=== PATIENT | male | born 1945 | race Two or more races ===

== ENCOUNTER 2025-05-29 17:53 | Inpatient (IN) | payer BC, OTHER ==
[~2025-05-29] VITALS: Ht 175.3 cm; Wt 118.2 kg
[2025-05-29] MEDS: ONDANSETRON HCL 4 MG/2 ML VIAL IV ONE (18:15)
--- NOTE | 2025-05-29 18:18 | ED.PDOC ---
HPI (NEURO) HPI Comments 79-year-old man complains of dizziness, nausea and come and vomiting and a little diarrhea for the last 3 days. Associated with some fatigue and malaise. Unprovoked. Worse with head movement. Chief Complaint: Dizziness Time Seen by MD: 18:07 Reviewed Notes: Nurses Notes Information Source: Patient Mode of Arrival: Wheelchair Severity: Moderate, Severe Headache Severity: Mild Timing: Days Duration: Since onset Past Medical History PAST MEDICAL HISTORY: Denies Social History Smoker: Non-Smoker Alcohol: Rarely Constitutional: reports: fatigue, malaise Gastrointestinal: reports: diarrhea, nausea, vomiting Neurological: reports: dizziness Physical Exam General Appearance: Moderate Distress HEENT: Normal ENT Inspection, Pharynx Normal, TMs Normal Neck: Full Range of Motion, Non-Tender, Normal, Normal Inspection Respiratory: Chest Non-Tender, Lungs Clear, No Accessory Muscle Use, No Respiratory Distress, Normal Breath Sounds Cardiovascular: No Edema, No JVD, No Murmur, No Gallop, Normal Peripheral Pulses, Regular Rate/Rhythm Breast Exam: Deferred Gastrointestinal: Non Tender, Other (obese) Genitalia: Deferred Pelvic: Deferred Rectal: Deferred Extremities: No calf tenderness, Normal capillary refill, Normal inspection, Normal range of motion, Non-tender, No pedal edema Musculoskeletal : Apperance: Normal Neurologic: Alert, blood bank technologist II-XII nml as Tested, No Motor Deficits, Normal Affect, Normal Mood, No Sensory Deficits Cerebellar Function: Normal Reflexes: Normal Skin: Dry, Normal Color, Warm Lymphatic: No Adenopathy EKG EKG : Cardiac Rhythm: NSR Was a procedure done? Was a procedure done?: No Differential Diagnosis (SZ) Seizure: Alcohol Withdrawl, Anticonvulsant Withdrawl, Closed Head Injury, CVA/TIA, Hypocalcemia, Hypoglycemia, Hyponatremia, Hypoxemia, Meningitis, Syncope, Encephalopathy, Other X-Ray, Labs, Meds, VS Vital Signs Date Time Temp Pulse Resp B/P (MAP) Pulse Ox O2 Delivery O2 Flow Rate FiO2 05/29/25 18:10 78 05/29/25 17:55 98.7 75 20 157/83 94 98.7 Lab Test 05/29/25 19:32 05/29/25 18:37 Range/Units Troponin I High Sensitivity Pending 24 </=54 ng/L White Blood Count 10.4 4.4-10.8 10^3/uL Red Blood Count 5.19 4.5-5.90 10^6/uL Hemoglobin 17.8 H 13.5-17.5 g/dL Hematocrit 50.3 41.0-53.0 % Mean Corpuscular Volume 96.9 80.0-100.0 fL Mean Corpuscular Hemoglobin 34.4 H 28.0-32.0 pg Mean Corpuscular Hemoglobin Concent 35.5 32.0-36.0 g/dL Red Cell Distribution Width 13.5 11.8-14.3 % Platelet Count 215 140-450 10^3/uL Mean Platelet Volume 9.9 6.9-10.8 fL Neutrophils (%) (Auto) 65.1 37.0-80.0 % Lymphocytes (%) (Auto) 25.6 10.0-50.0 % Monocytes (%) (Auto) 6.6 0.0-12.0 % Eosinophils (%) (Auto) 2.0 0.0-7.0 % Basophils (%) (Auto) 0.7 0.0-2.0 % Neutrophils # (Auto) 6.8 1.6-8.6 10 ^3/uL Lymphocytes # (Auto) 2.7 0.4-5.4 10 ^3/uL Monocytes # (Auto) 0.7 0-1.3 10 ^3/uL Eosinophils # (Auto) 0.2 0-0.8 10 ^3/uL Basophils # (Auto) 0.1 0-0.2 10 ^3/uL Nucleated Red Blood Cells 0.1 % Sodium Level 142 136-145 mmol/L Potassium Level 3.9 3.5-5.1 mmol/L Chloride Level 106 98-107 mmol/L Carbon Dioxide Level 25 20-31 mmol/L Anion Gap 11 5-15 Blood Urea Nitrogen 18 9-23 mg/dL Creatinine 1.10 0.700-1.30 mg/dL Glomerular Filtration Rate Calc 68 >90 mL/min BUN/Creatinine Ratio 16.4 10.0-20.0 Serum Glucose 108 H 74-106 mg/dL Calcium Level 9.4 8.7-10.4 mg/dL Magnesium Level 2.1 1.6-2.6 mg/dL Total Bilirubin 0.6 0.2-1.0 mg/dL Aspartate Amino Transferase (AST) 54 H 13-40 U/L Alanine Aminotransferase (ALT) 78 H 7-40 U/L Alkaline Phosphatase 63 46-116 U/L Total Protein 7.7 5.7-8.2 g/dL Albumin 4.8 3.2-4.8 g/dL Time of 1ST Reevaluation: 18:17 Reevaluation 1ST: Unchanged Patient Education/Counseling: Diagnosis, Treatment Family Education/Counseling: No Family Present Departure 1 Departure Time of Disposition: 19:54 Impression: Primary Impression: Vertigo Additional Impressions: Nausea vomiting and diarrhea Severe dizziness Disposition: ADMITTED INPATIENT Admit to: Tele Condition: Guarded Discharged With: Self Comments 79-year-old male with severe vertigo. Patient is unsteady on his feet. CT of the brain shows no acute pathology but there is some ischemic changes and degenerative changes. Radiology recommends MRI. Patient still having severe symptoms on re-evaluation. Patient will need to be admitted for supportive care and further workup including MRI Critical Care Note Critical Care Time?: Yes (35 min-critical care time only) Critical care comment: Total critical care time: Approximately 36 minutes Due to a high probability of clinically significant, life threatening deterioration, the patient required my highest level of preparedness to intervene emergently and I personally spent this critical care time directly and personally managing the patient. This critical care time included obtaining a history; examining the patient; pulse oximetry; ordering and review of studies; arranging urgent treatment with development of a management plan; evaluation of patient's response to treatment; frequent reassessment; and, discussions with other providers. This critical care time was performed to assess and manage the high probability of imminent, life-threatening deterioration that could result in multi-organ failure. It was exclusive of separately billable procedures and treating other patients. Stability Stability form required: No Heart Score Heart Score: Heart Score Response (Comments) Value History Slightly Suspicious 0 EKG Normal 0 Age >65 2 Risk Factors 1 or 2 risk factors 1 Troponin Normal limit 0 Total 3 GENNY LYMAN MD May 29, 2025 18:18
[2025-05-29 18:56] LABS: Nucleated Red Blood Cells % 0.1 %
[2025-05-29 18:57] LABS: Hematocrit 50.3 % (41.0-53.0); Hemoglobin 17.8 g/dL (13.5-17.5); Mean Corpuscular Hemoglobin 34.4 pg (28.0-32.0); Mean Corpuscular Volume 96.9 fL (80.0-100.0)
--- NOTE | 2025-05-29 19:01 | DVH ---
CT HEAD WITHOUT CONTRAST INDICATION: vertigo EXAM DATE: 05/29/2025 06:23 PM COMPARISON: None RADIATION DOSE: CTDIvol: 56.87 mGy, DLP: 1139.19 mGy*cm PROCEDURE: CT scans of the head were obtained from the vertex to the skull base. Sagittal and coronal reconstructions were provided. All CT scans at this medical facility are performed using dose modulation techniques as appropriate t o a performed exam including the following: Automated exposure control was utilized; adjustment of th e MA and/or KV according to patient size; and use of iterative reconstruction technique. FINDINGS: No acute territorial infarct, intracranial hemorrhage, or mass effect. There are global involutional changes with compensatory prominence of the ventricles and sulci. Patchy periventricular and subcorti felipe white matter hypoattenuation is nonspecific but may be related to small vessel ischemic disease. Probable arachnoid cyst within the left temporoparietal lobe. Bilateral lens implants. The paranasal sinuses and mastoid air cells are clear. The osseous structur es are unremarkable. IMPRESSION: 1. No acute territorial infarct, intracranial hemorrhage, or mass effect. 2. Age-related involutional changes. Chronic microvascular changes. 3. If clinical symptoms persist, MRI may be beneficial in further evaluation.
[2025-05-29 19:14] LABS: Alanine Aminotransferase 78 U/L (7-40); Albumin 4.8 g/dL (3.2-4.8); Alkaline Phosphatase 63 U/L (46-116); Anion Gap 11 (5-15); BUN/Creatinine Ratio 16.4 (10.0-20.0); Bilirubin, Total 0.6 mg/dL (0.2-1.0); Blood Urea Nitrogen 18 mg/dL (9-23); Calcium 9.4 mg/dL (8.7-10.4); Carbon Dioxide 25 mmol/L (20-31); Chloride 106 mmol/L (98-107); Glucose 108 mg/dL (74-106); Magnesium 2.1 mg/dL (1.6-2.6); Potassium 3.9 mmol/L (3.5-5.1); Sodium 142 mmol/L (136-145); Total Protein 7.7 g/dL (5.7-8.2)
[2025-05-29] MEDS ORDERED: DOCUSATE SOD 100 MG CAP PO PRN (23:15)
[2025-05-29] MEDS ORDERED: ONDANSETRON HCL 4 MG/2 ML VIAL IV PRN (23:15)
[2025-05-29] MEDS ORDERED: MORPHINE SULFATE INJ 2 MG/ml SYRG IV PRN (23:15)
[2025-05-29] MEDS ORDERED: HYDROcodone-ACET 5/325MG TAB PO PRN (23:15)
[2025-05-29] MEDS ORDERED: ACETAMINOPHEN 325 MG TAB PO PRN (23:15)
[2025-05-29] MEDS ORDERED: NITROGLYCERIN 0.4 MG SL TAB SL PRN (23:15)
--- NOTE | 2025-05-30 01:33 | DVHHP2 ---
DEBORAH MALAVE EXPLOSIVES MIXER OPERATOR 05/30/25 0133: History of Present Illness Reason for Visit: Dizziness History of Present Illness 79-year-old male without any pertinent medical history presents with complaints of ongoing dizziness over the previous week. States he feels like the room is spinning around him. Also feels nauseous. Endorses worsens when he tries to walk. States he is unable to walk with steady gait. At this time denies fevers, chills, shortness of breath, chest pain, palpitations, abdominal pain, dysuria, leg swelling. Smoke: No ALCOHOL: none Drugs: None Lives: with Family Review of Systems Constitutional: Yes: Weakness; No: Fever, Chills, Sweats, Malaise, Other Eyes: No: Pain, Vision change, Conjunctivae inflammation, Eyelid inflammation, Other, Redness ENT: No: Ear pain, Ear discharge, Nose pain, Nose discharge, Nose congestion, Mouth pain, Mouth swelling, Throat pain, Throat swelling, Other Respiratory: No: Cough, Dry, Shortness of breath, SOB with excertion, Wheezing, Hemoptysis, Pleuritic Pain, Sputum, Wheezing, Other Cardiovascular: No: Chest Pain, Palpitations, Orthopnea, Paroxysmal Noc. Dyspnea, Edema, Lt Headedness, Other Gastrointestinal: No: Nausea, Vomiting, Abdominal Pain, Diarrhea, Constipation, Melena, Hematochezia, Other Genitourinary: No Dysuria, No Frequency, No Incontinence, No Hematuria, No Retention, No Other Musculoskeletal: No: other, neck pain, shoulder pain, arm pain, back pain, hand pain, leg pain, foot pain Skin: No: Rash, Lesions, Jaundice, Bruising, Other Neurological: Other (Dizziness); No: Weakness, Numbness, Incoordination, Change in speech, Confusion, Seizures Allergies: Coded Allergies: NO KNOWN ALLERGIES (Unverified , 05/29/25) Medications Current Medications Medications Dose Ordered Sig/Rena Route Start Time Stop Time Status Last Admin Dose Admin Sodium Chloride 1,000 ml @ 75 mls/hr [id number] IV 05/29/25 23:15 05/30/25 12:34 Docusate Sodium 100 mg BIDPRN PRN PO 05/29/25 23:15 Acetaminophen 650 mg Q6HP PRN PO 05/29/25 23:15 Acetaminophen/ Hydrocodone Bitart 1 tab Q4HP PRN PO 05/29/25 23:15 Ondansetron HCl 4 mg Q4HP PRN IV 05/29/25 23:15 Enoxaparin Sodium 40 mg DAILY SC 05/30/25 10:00 Nitroglycerin 0.4 mg Q5MINP PRN SL 05/29/25 23:15 Morphine Sulfate 2 mg Q30M PRN IV 05/29/25 23:15 Meclizine HCl 25 mg Q8HR PO 05/30/25 06:00 06/01/25 22:01 Exam Vital Signs Vital Signs Date Time Temp Pulse Resp B/P (MAP) Pulse Ox O2 Delivery O2 Flow Rate FiO2 05/29/25 18:10 78 05/29/25 17:55 98.7 20 157/83 94 98.7 General Appearance: Alert, Oriented X3, Cooperative, No acute distress HEENT: Atraumatic, PERRLA, EOMI Respiratory: Clear to auscultation, Normal air movement Cardiovascular: Regular rate, Normal S1, Normal S2 Abdominal: Normal bowel sounds, Soft Extremities: No clubbing, No cyanosis, No edema Neuro: Normal speech, Strength at 5/5 X4 ext Psych/Mental Status: Mental status NL, Mood NL Labs/Xrays Labs Test 05/29/25 19:32 05/29/25 18:37 Range/Units Troponin I High Sensitivity 21 </=54 ng/L White Blood Count 10.4 4.4-10.8 10^3/uL Red Blood Count 5.19 4.5-5.90 10^6/uL Hemoglobin 17.8 H 13.5-17.5 g/dL Hematocrit 50.3 41.0-53.0 % Mean Corpuscular Volume 96.9 80.0-100.0 fL Mean Corpuscular Hemoglobin 34.4 H 28.0-32.0 pg Mean Corpuscular Hemoglobin Concent 35.5 32.0-36.0 g/dL Red Cell Distribution Width 13.5 11.8-14.3 % Platelet Count 215 140-450 10^3/uL Mean Platelet Volume 9.9 6.9-10.8 fL Neutrophils (%) (Auto) 65.1 37.0-80.0 % Lymphocytes (%) (Auto) 25.6 10.0-50.0 % Monocytes (%) (Auto) 6.6 0.0-12.0 % Eosinophils (%) (Auto) 2.0 0.0-7.0 % Basophils (%) (Auto) 0.7 0.0-2.0 % Neutrophils # (Auto) 6.8 1.6-8.6 10 ^3/uL Lymphocytes # (Auto) 2.7 0.4-5.4 10 ^3/uL Monocytes # (Auto) 0.7 0-1.3 10 ^3/uL Eosinophils # (Auto) 0.2 0-0.8 10 ^3/uL Basophils # (Auto) 0.1 0-0.2 10 ^3/uL Nucleated Red Blood Cells 0.1 % Sodium Level 142 136-145 mmol/L Potassium Level 3.9 3.5-5.1 mmol/L Chloride Level 106 98-107 mmol/L Carbon Dioxide Level 25 20-31 mmol/L Anion Gap 11 5-15 Blood Urea Nitrogen 18 9-23 mg/dL Creatinine 1.10 0.700-1.30 mg/dL Glomerular Filtration Rate Calc 68 >90 mL/min BUN/Creatinine Ratio 16.4 10.0-20.0 Serum Glucose 108 H 74-106 mg/dL Calcium Level 9.4 8.7-10.4 mg/dL Magnesium Level 2.1 1.6-2.6 mg/dL Total Bilirubin 0.6 0.2-1.0 mg/dL Aspartate Amino Transferase (AST) 54 H 13-40 U/L Alanine Aminotransferase (ALT) 78 H 7-40 U/L Alkaline Phosphatase 63 46-116 U/L Total Protein 7.7 5.7-8.2 g/dL Albumin 4.8 3.2-4.8 g/dL SEPSIS Sepsis Screen Date sepsis recognized/suspect: May 29, 2025 Time Sepsis recognized/suspect: 1754 Recent Procedure: No On Antibiotic Therapy: No Respiratory Rate >20: No Heart Rate >90: No Temp<36 C (96.8 F) or >38.3 C: No SBP <90 or MAP <65 mmHG: No New Acute Mental Status Change: No Is the patient on CPAP, BIPAP,: No Physician Orders Electrocardigram (05/29/25 18:13) Head Without Contrast (05/29/25 18:12) Admit (05/29/25 23:14) Code Status (05/29/25:14) Vital Signs .PER UNIT PROTOCOL (05/29/25 23:14) Review Orders With Adm.Md (05/29/25 23:14) Encourage Activity As Tolerate (05/29/25:14) Consistent Carb(Ccho)Diabetes (05/30/25 Breakfast) Sodium Chloride 0.9% (05/29/25 23:15) Oxygen By Face Mask (05/29/25:14) Docusate Sodium Capsule (Colace Capsule) (05/29/25 23:15) Acetaminophen Tablet (Tylenol Tablet) (05/29/25 23:15) Notify Md Of Changes From Base (05/29/25:14) Advance Directive (05/29/25:14) Echo 2d Mode Cardiac Dop (05/29/25:14) Basic Metabolic Panel (05/30/25 05:00) Basic Metabolic Panel (05/31/25 05:00) Basic Metabolic Panel (06/01/25 05:00) Complete Blood Count (05/30/25 05:00) Complete Blood Count (05/31/25 05:00) Complete Blood Count (06/01/25 05:00) Patient Condition (05/29/25 23:14) Allergies (05/29/25:14) Hydrocodone-Acet 5/325mg Tab ([place] 5/32 (05/29/25 23:15) Ondansetron Hcl (Zofran) (05/29/25 23:15) Enoxaparin Sodium (Lovenox) (05/30/25 10:00) Sequential Compression Device (05/29/25 ) Nitroglycerin Sublingual (Ntrostat Subli (05/29/25 23:15) Morphine Sulfate Injection (05/29/25 23:15) Stat Ekg For Chest Pain (05/29/25:14) Notify Md Of Changes From Base (05/29/25:) Grounds And Nursery Specialist For 24 Hours (05/29/25 23:14) Emergency Dysrhythmia Protocol (05/29/25:14) Rhythm Strips Once Every Shift (05/29/25 23:14) Oxygen By Nasal Cannula (05/29/25:14) Meclizine Tablet (Antivert Tablet) (05/30/25 06:00) Pt Request For Service (05/29/25 23:14) Brain Head Wo Contrast (05/29/25 23:14) Orthostatic Vital Signs (05/29/25 23:14) Orthostatic Vital Signs (05/30/25 23:14) Orthostatic Vital Signs (05/31/25 23:14) Orthostatic Vital Signs (06/01/25 23:14) * Cardiology Consult (05/29/25 23:14) Vital Signs Date Time Temp Pulse Resp B/P (MAP) Pulse Ox O2 Delivery O2 Flow Rate FiO2 05/29/25 18:10 78 05/29/25 17:55 98.7 75 20 157/83 94 98.7 Laboratory Tests Test 05/29/25 18:37 White Blood Count 10.4 10^3/uL (4.4-10.8) Assessment/Plan Assessment/Plan Dizziness Plan Admit telemetry Cardiology consult. echocardiogram. Orthostatic vital signs. MRI brain. IVF, Meclizine Physical therapy evaluation GI ppx protonix /dvt ppx lovenox Plan discussed with: Patient My Orders Orders - DEBORAH MALAVE EXPLOSIVES MIXER OPERATOR Procedure Category Date Status Time Admit ADMIT 05/29/25 Transmitted 23:14 Code Status CODE 05/29/25 Transmitted 23:14 Vital Signs RORY 05/29/25 In Process 23:14 Review Orders With RORY 05/29/25 In Process Adm. 23:14 Encourage Activity As RORY 05/29/25 In Process Tolerate 23:14 Consistent DIET 05/30/25 Transmitted Carb(Ccho)Diabetes Breakfast Sodium Chloride 0.9% PHA 05/29/25 In Process 23:15 Oxygen By Face Mask RT 05/29/25 Transmitted 23:14 Docusate Sodium PHA 05/29/25 In Process Capsule (Colace 23:15 Acetaminophen Tablet PHA 05/29/25 In Process (Tylenol Tablet) 23:15 Notify Md Of Changes RORY 05/29/25 In Process From Base 23:14 Advance Directive RORY 05/29/25 In Process 23:14 Echo 2d Mode Cardiac US 05/29/25 Logged DOP 23:14 Basic Metabolic Panel LAB 05/30/25 Logged 05:00 Basic Metabolic Panel LAB 05/31/25 Verified 05:00 Basic Metabolic Panel LAB 06/01/25 Verified 05:00 Complete Blood Count LAB 05/30/25 Logged 05:00 Complete Blood Count LAB 05/31/25 Verified 05:00 Complete Blood Count LAB 06/01/25 Verified 05:00 Patient Condition ORDERS 05/29/25 Transmitted 23:14 Allergies RORY 05/29/25 In Process 23:14 Hydrocodone-Acet PHA 05/29/25 In Process 5/325mg Tab ([place] 23:15 Ondansetron Hcl PHA 05/29/25 In Process (Zofran) 23:15 Enoxaparin Sodium PHA 05/30/25 In Process (Lovenox) 10:00 Sequential RORY 05/29/25 In Process Compression Device Nitroglycerin PHA 05/29/25 In Process Sublingual (Ntrostat 23:15 Morphine Sulfate PHA 05/29/25 In Process Injection 23:15 Stat Ekg For Chest RORY 05/29/25 In Process Pain 23:14 Notify Md Of Changes RORY 05/29/25 In Process From Base 23:14 Grounds And Nursery Specialist For [facility] 05/29/25 In Process 24 Hours 23:14 Emergency Dysrhythmia RORY 05/29/25 In Process Protocol 23:14 Rhythm Strips Once RORY 05/29/25 In Process Every Shift 23:14 Oxygen By Nasal RT 05/29/25 Transmitted Cannula 23:14 Meclizine Tablet PHA 05/30/25 In Process (Antivert Tablet) 06:00 Pt Request For Service PT 05/29/25 Logged 23:14 Brain Head Wo Contrast MRI 05/29/25 Logged 23:14 Orthostatic Vital ORDERS 05/29/25 Transmitted Signs 23:14 Orthostatic Vital ORDERS 05/30/25 Transmitted Signs 23:14 Orthostatic Vital ORDERS 05/31/25 Transmitted Signs 23:14 Orthostatic Vital ORDERS 06/01/25 Transmitted Signs 23:14 * Cardiology Consult CONS 05/29/25 Transmitted 23:14 Date of Service: May 30, 2025 Billing Provider: SOLEDAD NUR MD Common Visit Codes: NOT BILLABLE SOLEDAD NUR MD 05/30/25 1648: Review of Systems Allergies: Coded Allergies: NO KNOWN ALLERGIES (Unverified , 05/29/25) Additional Comments Additional Comments Additional Comments Patient's chart is reviewed and discussed with the nurse practitioner regarding admission. Patient is seen evaluated and admitted by nurse practitioner duplicating machine servicer. Patient is seen and evaluated by me this afternoon. I agree with the nurse practitioner's evaluation, documentation, assessment and care plan as outlined. DEBORAH MALAVE NP May 30, 2025 01:33 SOLEDAD NUR MD May 30, 2025 16:48
[2025-05-30] MEDS: SODIUM CHLORIDE 0.9% 1,000 ML IV ONE (02:15)
[2025-05-30] MEDS: MECLIZINE HCL 25 MG TAB PO ONE (02:19)
[2025-05-30 02:20] VITALS: PULSE 74; RESP 12; O2SAT 96
[2025-05-30] MEDS: SODIUM CHLORIDE 0.9% 1,000 ML IV SCH (03:06)
[2025-05-30] MEDS: MECLIZINE HCL 25 MG TAB PO SCH (05:53)
[2025-05-30] MEDS: hydrALAZINE HCL 20 MG/ML VL IV PRN (06:15)
[2025-05-30 07:29] LABS: Hematocrit 50.0 % (41.0-53.0); Hemoglobin 17.1 g/dL (13.5-17.5); Mean Corpuscular Hemoglobin 33.7 pg (28.0-32.0); Mean Corpuscular Volume 98.9 fL (80.0-100.0); Nucleated Red Blood Cells % 0.1 %
[2025-05-30 07:31] LABS: Chloride 106 mmol/L (98-107); Potassium 3.8 mmol/L (3.5-5.1); Sodium 141 mmol/L (136-145)
[2025-05-30 07:32] LABS: Anion Gap 14 (5-15); Carbon Dioxide 21 mmol/L (20-31)
[2025-05-30 07:33] LABS: Calcium 9.2 mg/dL (8.7-10.4)
[2025-05-30 07:37] LABS: BUN/Creatinine Ratio 21.1 (10.0-20.0); Blood Urea Nitrogen 19 mg/dL (9-23)
[2025-05-30 07:40] LABS: Glucose 120 mg/dL (74-106)
[2025-05-30] MEDS: ENOXAPARIN SOD 40 MG/0.4 ML SYRINGE SC SCH (08:11)
[2025-05-30 11:26] VITALS: PULSE 88; RESP 16; O2SAT 96
[2025-05-30 11:30] VITALS: BP 137/72; PULSE 80; RESP 18; TEMP 98.9; O2SAT 95
--- NOTE | 2025-05-30 13:12 | DVH ---
CHEST RADIOGRAPH Indication: PROTOCOL Technique: XY CHEST TWO VIEWS ROUTINE Comparison: None FINDINGS: The cardiac silhouette is demonstrating prominence of the aortic arch. The lungs demonstrate no pulmo nary airspace consolidation. The pulmonary vasculature is unremarkable. There is no pleural effusion. There is no pneumothorax. There is moderate thoracic degenerative disc disease. IMPRESSION: Prominence of the aortic arch. Recommend CT angiogram carotid chest to evaluate for aortic aneurysm. No pulmonary airspace consolidation.
--- NOTE | 2025-05-30 15:30 | ECG ---
[facility] Test Date: 2025-05-29 Test Time: 18:10:16 Pat Name: LIN VASQUEZ Department: ED Room: 0292T B Gender: M Neonatal Specialist: gp : [phone] Requested By: GENNY LYMAN Order Number: [id number] Reading MD: Armando Hernandez Measurements Intervals [place] Rate: 78 P: 35 MS: 173 QRS: 263 QRSD: 118 T: 74 QT: 442 QTc: 504 Interpretive Statements Sinus rhythm LAD, consider left anterior fascicular block Baseline wander in lead(s) V1,V2,V3,V5 Electronically Signed On 05-30-2025 15:42:42 PDT by Armando Hernandez Please click the below link to view image of tracing.
--- NOTE | 2025-05-30 16:25 | DVH ---
PROCEDURE: MRI BRAIN HEAD WO CONTRAST Indication: dizziness COMPARISON: 05/29/2025 TECHNIQUE: Multiplanar multisequence images of the brain are obtained. FINDINGS: There is no abnormal diffusion restriction. There is no intracranial hemorrhage. No mass effect or m idline shift. Left frontotemporal arachnoid cyst. Moderate periventricular and subcortical white ma tter T2 and FLAIR hyperintense changes.. The ventricles are midline and normal in size. The cisterns are patent. Normal intracranial flow voids are preserved. No abnormal susceptibility signal. Mastoids are well pneumatized. Mucosal thickening of the ethmoids. The visualized orbits are unremar kable. IMPRESSION: No acute cerebrovascular ischemia. Moderate chronic microvascular ischemic changes.
[2025-05-30 17:00] VITALS: BP 133/73; PULSE 71; RESP 18; TEMP 97.7; O2SAT 96
--- NOTE | 2025-05-30 17:08 | DVHSR ---
APPROVED REPORT EXAM: Two-dimensional and M-mode echocardiogram with Doppler and color Doppler. Blood Pressure: 152/67 mmHg INDICATION Dizziness and Vertigo RISK FACTORS Height: 70, Weight: 269 DIMENSIONS LVDd5.5 (3.8-5.7cm)LA (2D) (1.9-4.0cm)Aortic Root4.2 (2.0-3.7cm) LVDs4.1 (2.5-4.0cm)LA (MM) (1.9-4.0cm)Aortic Cusp Exc2.4 (1.5-2.0cm) EF (%) 50.0 (55-70%)Rt. Atrium (1.9-4.0cm)Asc. Aorta cm Mitral Valve MitralMitral Stenosis E wave0.60m/sMV Mean GR.mmHg A wave1.04m/sMV Peak GR.mmHg E/A ratio0.62D MVAcm2 DECEL [id number] 1/2 Timems Aortic Valve Aortic ValveAortic Stenosis V11.04m/Leonel Mean GR.4mmHg V21.45m/Lenoel Peak GR.8mmHg LVOT Diameter2.2 (1.8-2.4cm)Doppler AVA2.73cm2 AI P 1/2 Yhkn314.42ms Pulmonic Valve V21.01m/s Tricuspid Valve TR Velocity2.58m/s [id number] Conclusion MILD LVH AND MILD LV DIASTOLIC DYSFUNCTION LV EF IS 70% AORTIC SCLEROSIS MODERATE DEGREE AORTIC REGURGITATION NORMAL VALVES NO EFFUSION
[2025-05-30 20:00] VITALS: PULSE 74; PULSE 86; RESP 19; O2SAT 98
[2025-05-30 20:41] VITALS: BP 96/61; PULSE 74; RESP 19; TEMP 98; O2SAT 98
--- NOTE | 2025-05-30 23:40 | DVHINCON2 ---
Date of service: May 30, 2025 Referring Physician Titi Reason for Consultation Dizziness History of Present Illness This is a 79 year old male without any PMH who presented to the ED with complaints of dizziness, nausea, vomiting and diarrhea for the last 3 days. Patient reports associated with some fatigue and malaise. Worse with head movement. EKG is NSR. CT of the brain shows no acute pathology but there is some ischemic changes and degenerative changes. WBC 11.2. Troponin is negative x2. Patient was admitted to the hospital. I am asked to consult on this patient. Family History: FH: esophageal cancer G8 MOTHER FH: stroke G8 FATHER Allergies: Coded Allergies: NO KNOWN ALLERGIES (Unverified , 05/29/25) Current Medications Current Medications Medications (Trade) Dose Ordered Sig/Rena Route PRN Reason Start Time Stop Time Status Last Admin Enoxaparin Sodium (Lovenox) 40 mg DAILY SC 05/30/25 10:00 05/30/25 08:11 Meclizine HCl (Antivert Tablet) 25 mg Q8HR PO 05/30/25 06:00 06/01/25 22:01 05/30/25 21:30 Hydralazine HCl (Apresoline Injection) 10 mg Q6HP PRN IV SBP>160 05/30/25 05:45 05/30/25 06:15 Review of Systems Constitutional: Yes: Weakness; No: Fever, Chills, Sweats, Malaise, Other Eyes: No: Pain, Vision change, Conjunctivae inflammation, Eyelid inflammation, Other, Redness ENT: No: Ear pain, Ear discharge, Nose pain, Nose discharge, Nose congestion, Mouth pain, Mouth swelling, Throat pain, Throat swelling, Other Respiratory: No: Cough, Dry, Shortness of breath, SOB with excertion, Wheezing, Hemoptysis, Pleuritic Pain, Sputum, Wheezing, Other Cardiovascular: No: Chest Pain, Palpitations, Orthopnea, Paroxysmal Noc. Dyspne a, Edema, Lt Headedness, Other Gastrointestinal: No: Nausea, Vomiting, Abdominal Pain, Diarrhea, Constipation, Melena, Hematochezia, Other Genitourinary: No Dysuria, No Frequency, No Incontinence, No Hematuria, No Retention, No Other Musculoskeletal: No: other, neck pain, shoulder pain, arm pain, back pain, hand pain, leg pain, foot pain Skin: No: Rash, Lesions, Jaundice, Bruising, Other Neurological: Other (Dizziness); No: Weakness, Numbness, Incoordination, Change in speech, Confusion, Seizures Vital Signs Vital Signs Date Time Temp Pulse Resp B/P (MAP) Pulse Ox O2 Delivery O2 Flow Rate FiO2 05/30/25 20:41 98.0 74 19 96/61 (73) 98 98.0 05/30/25 20:00 Room Air* 0 21 Physical Exam GENERAL: Alert and oriented x 3. No acute distress. Obese. EYES: PERRL, EOMI. Anicteric. HENT: Moist mucous membranes. LUNGS: Clear to auscultation bilaterally. CARDIOVASCULAR: Regular rate and rhythm. ABDOMEN: Soft, non-tender and non-distended. EXTREMITIES: No edema. NEUROLOGIC: No focal neurological deficits. SKIN: Warm, dry. Labs/Diagnostic Data Labs Test 05/30/25 06:33 05/29/25 19:32 05/29/25 18:37 Range/Units White Blood Count 11.2 H 4.4-10.8 10^3/uL Red Blood Count 5.06 4.5-5.90 10^6/uL Hemoglobin 17.1 13.5-17.5 g/dL Hematocrit 50.0 41.0-53.0 % Mean Corpuscular Volume 98.9 80.0-100.0 fL Mean Corpuscular Hemoglobin 33.7 H 28.0-32.0 pg Mean Corpuscular Hemoglobin Concent 34.1 32.0-36.0 g/dL Red Cell Distribution Width 13.8 11.8-14.3 % Platelet Count 166 140-450 10^3/uL Mean Platelet Volume 9.6 6.9-10.8 fL Neutrophils (%) (Auto) 60.3 37.0-80.0 % Lymphocytes (%) (Auto) 28.5 10.0-50.0 % Monocytes (%) (Auto) 8.2 0.0-12.0 % Eosinophils (%) (Auto) 2.7 0.0-7.0 % Basophils (%) (Auto) 0.3 0.0-2.0 % Neutrophils # (Auto) 6.7 1.6-8.6 10 ^3/uL Lymphocytes # (Auto) 3.2 0.4-5.4 10 ^3/uL Monocytes # (Auto) 0.9 0-1.3 10 ^3/uL Eosinophils # (Auto) 0.3 0-0.8 10 ^3/uL Basophils # (Auto) 0 0-0.2 10 ^3/uL Nucleated Red Blood Cells 0.1 % Sodium Level 141 136-145 mmol/L Potassium Level 3.8 3.5-5.1 mmol/L Chloride Level 106 98-107 mmol/L Carbon Dioxide Level 21 20-31 mmol/L Anion Gap 14 5-15 Blood Urea Nitrogen 19 9-23 mg/dL Creatinine 0.90 0.700-1.30 mg/dL Glomerular Filtration Rate Calc 86 >90 mL/min BUN/Creatinine Ratio 21.1 H 10.0-20.0 Serum Glucose 120 H 74-106 mg/dL Calcium Level 9.2 8.7-10.4 mg/dL Troponin I High Sensitivity 21 </=54 ng/L Magnesium Level 2.1 1.6-2.6 mg/dL Total Bilirubin 0.6 0.2-1.0 mg/dL Aspartate Amino Transferase (AST) 54 H 13-40 U/L Alanine Aminotransferase (ALT) 78 H 7-40 U/L Alkaline Phosphatase 63 46-116 U/L Total Protein 7.7 5.7-8.2 g/dL Albumin 4.8 3.2-4.8 g/dL Assessment Dizziness. Nausea vomiting and diarrhea. Obesity. Plan/Recommendation I agree with your ongoing assessment and care of plan. Echocardiogram. Orthostatic vital signs. Morphine and [place] for pain management. DVT prophylactics. IV Hydralazine for SBP >160. Nitro SL. Follow up on MRI brain. Additional plan as per the hospital course. A total of 45 minutes was spent reviewing the patient record, examining the patient, making a diagnostic and therapeutic plan, discussing this plan with medical personnel, following up on diagnostic studies and following the patient for clinical stability excluding any and all procedures. At least 50% of this time was spent in direct, [id number] contact. Plan discussed with: Patient MELISSA WADDELL MD May 30, 2025 23:40
[2025-05-31] VITALS (9 sets, daily range): BP systolic 117–152; BP diastolic 43–96; PULSE 63–78; RESP 18–19; TEMP 97.1–98.4; O2SAT 95–98
[2025-05-31 07:04] LABS: Hematocrit 48.4 % (41.0-53.0); Hemoglobin 16.7 g/dL (13.5-17.5); Mean Corpuscular Hemoglobin 34.6 pg (28.0-32.0); Mean Corpuscular Volume 100.2 fL (80.0-100.0); Nucleated Red Blood Cells % 0.5 %
[2025-05-31 09:05] LABS: Chloride 105 mmol/L (98-107); Potassium 3.9 mmol/L (3.5-5.1); Sodium 143 mmol/L (136-145)
[2025-05-31 09:06] LABS: Anion Gap 9 (5-15); Carbon Dioxide 29 mmol/L (20-31)
[2025-05-31 09:07] LABS: Calcium 9.3 mg/dL (8.7-10.4)
[2025-05-31 09:11] LABS: BUN/Creatinine Ratio 12.6 (10.0-20.0); Blood Urea Nitrogen 14 mg/dL (9-23)
[2025-05-31 09:14] LABS: Glucose 141 mg/dL (74-106)
--- NOTE | 2025-05-31 16:39 | DVHPN2 ---
Progress Note - Dictate Date Seen: May 31, 2025 Medical Necessity Reason Pt with a Central, PICC or Fol: No Subjective Patient is still feeling little dizzy and unsteady gait with physical therapy today. Blood pressure slightly on the high normal range in the 150s. MRI of the brain done no acute stroke. vital signs Vital Sign Date Time Temp Pulse Resp B/P (MAP) Pulse Ox O2 Delivery O2 Flow Rate FiO2 05/31/25 13:00 97.9 77 19 149/88 (108) 96 97.9 05/31/25 08:00 Room Air* 0 21 Total Intake and Output 05/30/25 05/30/25 05/31/25 15:00 23:00 07:00 Intake Total 200 ml 810 ml 2560 ml Output Total 400 ml 400 ml 3960 ml Balance -200 ml 410 ml -1400 ml medications Current Medications Medications Dose Ordered Sig/Rena Route Start Time Stop Time Status Last Admin Dose Admin Docusate Sodium 100 mg BIDPRN PRN PO 05/29/25 23:15 Acetaminophen 650 mg Q6HP PRN PO 05/29/25 23:15 Acetaminophen/ Hydrocodone Bitart 1 tab Q4HP PRN PO 05/29/25 23:15 Ondansetron HCl 4 mg Q4HP PRN IV 05/29/25 23:15 Enoxaparin Sodium 40 mg DAILY SC 05/30/25 10:00 05/31/25 10:20 40 MG Nitroglycerin 0.4 mg Q5MINP PRN SL 05/29/25 23:15 Morphine Sulfate 2 mg Q30M PRN IV 05/29/25 23:15 Meclizine HCl 25 mg Q8HR PO 05/30/25 06:00 06/01/25 22:01 05/31/25 13:58 25 MG Hydralazine HCl 10 mg Q6HP PRN IV 05/30/25 05:45 05/30/25 06:15 10 MG objective Alert awake oriented x3. HEENT neck supple no JVD pupils equal round react to light. Heart regular rate and rhythm S1-S2. Lungs fair air movement without rales wheezes. Abdomen obese soft positive bowel sounds. Extremities no edema positive pulses. Neurologic no focal deficits. laboratory and microbiology Laboratory Tests 05/31/25 08:42 05/31/25 06:08 Test 05/31/25 08:42 Range/Units Serum Glucose 141 H 74-106 mg/dL Assessment/Plan Benign positional vertigo Hypertension Morbid obesity BMI 38 Given the patient still has some unsteady gait with a vertigo symptoms I will monitor him overnight. We will add lisinopril for blood pressure control. Continue physical therapy and meclizine. If he remains stable consider discharge home tomorrow. Discussed with the nurse regarding care plan. Plan discussed with: Other SOLEDAD NUR MD May 31, 2025 16:39
[2025-05-31] MEDS ORDERED: LISINOPRIL 5 MG TAB PO SCH (18:00)
--- NOTE | 2025-05-31 21:25 | DVHPN2 ---
Progress Note - Dictate Date Seen: May 31, 2025 Medical Necessity Reason Pt with a Central, PICC or Fol: No Subjective Patient was seen and evaluated in follow up. Patient is still feeling dizzy and had unsteady gait with physical therapy today. Echocardiogram showed LV EF of 70%. BS are WNL. MRI brain shows moderate chronic microvascular ischemic changes. Telemetry reviewed. vital signs Vital Sign Date Time Temp Pulse Resp B/P (MAP) Pulse Ox O2 Delivery O2 Flow Rate FiO2 05/31/25 13:00 97.9 77 19 149/88 (108) 96 97.9 05/31/25 08:00 Room Air* 0 21 Total Intake and Output 05/30/25 05/30/25 05/31/25 15:00 23:00 07:00 Intake Total 200 ml 810 ml 2560 ml Output Total 400 ml 400 ml 3960 ml Balance -200 ml 410 ml -1400 ml medications Current Medications Medications Dose Ordered Sig/Rena Route Start Time Stop Time Status Last Admin Dose Admin Docusate Sodium 100 mg BIDPRN PRN PO 05/29/25 23:15 Acetaminophen 650 mg Q6HP PRN PO 05/29/25 23:15 Acetaminophen/ Hydrocodone Bitart 1 tab Q4HP PRN PO 05/29/25 23:15 Ondansetron HCl 4 mg Q4HP PRN IV 05/29/25 23:15 Enoxaparin Sodium 40 mg DAILY SC 05/30/25 10:00 05/31/25 10:20 40 MG Nitroglycerin 0.4 mg Q5MINP PRN SL 05/29/25 23:15 Morphine Sulfate 2 mg Q30M PRN IV 05/29/25 23:15 Meclizine HCl 25 mg Q8HR PO 05/30/25 06:00 06/01/25 22:01 05/31/25 13:58 25 MG Hydralazine HCl 10 mg Q6HP PRN IV 05/30/25 05:45 05/30/25 06:15 10 MG objective GENERAL: Alert and oriented x 3. No acute distress. Obese. EYES: PERRL, EOMI. Anicteric. HENT: Moist mucous membranes. LUNGS: Clear to auscultation bilaterally. CARDIOVASCULAR: Regular rate and rhythm. ABDOMEN: Soft, non-tender and non-distended. EXTREMITIES: No edema. NEUROLOGIC: No focal neurological deficits. SKIN: Warm, dry. laboratory and microbiology Laboratory Tests 05/31/25 08:42 05/31/25 06:08 Test 05/31/25 08:42 Range/Units Serum Glucose 141 H 74-106 mg/dL Problem List Dizziness. Nausea vomiting and diarrhea. Obesity. Assessment/Plan Continued all current supportive medical care. Nitro SL. DVT prophylactics. Morphine and [place] for pain management. Additional plan as per the hospital course. Plan discussed with: Patient MELISSA WADDELL MD May 31, 2025 14:48
[2025-05-31] MEDS: LISINOPRIL 5 MG TAB PO SCH (22:29)
[2025-06-01 01:00] VITALS: BP 142/90; PULSE 68; RESP 18; TEMP 98; O2SAT 97
[2025-06-01 05:00] VITALS: BP 126/76; PULSE 70; RESP 18; TEMP 97.9; O2SAT 95
[2025-06-01 05:36] LABS: Hematocrit 46.4 % (41.0-53.0); Hemoglobin 16.1 g/dL (13.5-17.5); Mean Corpuscular Hemoglobin 33.7 pg (28.0-32.0); Mean Corpuscular Volume 97.1 fL (80.0-100.0); Nucleated Red Blood Cells % 0.0 %
[2025-06-01 05:45] LABS: Chloride 106 mmol/L (98-107); Potassium 3.6 mmol/L (3.5-5.1); Sodium 143 mmol/L (136-145)
[2025-06-01 05:46] LABS: Anion Gap 11 (5-15); Calcium 8.9 mg/dL (8.7-10.4); Carbon Dioxide 26 mmol/L (20-31)
[2025-06-01 05:52] LABS: BUN/Creatinine Ratio 12.4 (10.0-20.0); Blood Urea Nitrogen 13 mg/dL (9-23)
[2025-06-01 05:54] LABS: Glucose 114 mg/dL (74-106)
[2025-06-01 08:00] VITALS: PULSE 68; PULSE 78; RESP 18; O2SAT 98
[2025-06-01 09:00] VITALS: BP 128/77; PULSE 77; RESP 18; TEMP 97.7; O2SAT 96
[2025-06-01] MEDS ORDERED: MECL12.586 PO (12:23)
[2025-06-01 12:49] VITALS: BP 110/76; PULSE 75; RESP 17; TEMP 98.6; O2SAT 95
--- NOTE | 2025-06-01 13:03 | DVHDS2 ---
Discharge Summary Date of Admission May 29, 2025 at 23:14 Date of Discharge: Jun 01, 2025 Labs/Diagnostic Data: Laboratory Results Test 06/01/25 05:10 05/29/25 19:32 05/29/25 18:37 White Blood Count 8.3 10^3/uL (4.4-10.8) Red Blood Count 4.78 10^6/uL (4.5-5.90) Hemoglobin 16.1 g/dL (13.5-17.5) Hematocrit 46.4 % (41.0-53.0) Mean Corpuscular Volume 97.1 fL (80.0-100.0) Mean Corpuscular Hemoglobin 33.7 pg (28.0-32.0) Mean Corpuscular Hemoglobin Concent 34.7 g/dL (32.0-36.0) Red Cell Distribution Width 13.6 % (11.8-14.3) Platelet Count 184 10^3/uL (140-450) Mean Platelet Volume 9.7 fL (6.9-10.8) Neutrophils (%) (Auto) 55.0 % (37.0-80.0) Lymphocytes (%) (Auto) 31.0 % (10.0-50.0) Monocytes (%) (Auto) 8.1 % (0.0-12.0) Eosinophils (%) (Auto) 5.5 % (0.0-7.0) Basophils (%) (Auto) 0.4 % (0.0-2.0) Neutrophils # (Auto) 4.6 10 ^3/uL (1.6-8.6) Lymphocytes # (Auto) 2.6 10 ^3/uL (0.4-5.4) Monocytes # (Auto) 0.7 10 ^3/uL (0-1.3) Eosinophils # (Auto) 0.5 10 ^3/uL (0-0.8) Basophils # (Auto) 0 10 ^3/uL (0-0.2) Nucleated Red Blood Cells 0.0 % Sodium Level 143 mmol/L (136-145) Potassium Level 3.6 mmol/L (3.5-5.1) Chloride Level 106 mmol/L (98-107) Carbon Dioxide Level 26 mmol/L (20-31) Anion Gap 11 (5-15) Blood Urea Nitrogen 13 mg/dL (9-23) Creatinine 1.05 mg/dL (0.700-1.30) Glomerular Filtration Rate Calc 72 mL/min (>90) BUN/Creatinine Ratio 12.4 (10.0-20.0) Serum Glucose 114 mg/dL (74-106) Calcium Level 8.9 mg/dL (8.7-10.4) Troponin I High Sensitivity 21 ng/L (</=54) Magnesium Level 2.1 mg/dL (1.6-2.6) Total Bilirubin 0.6 mg/dL (0.2-1.0) Aspartate Amino Transferase (AST) 54 U/L (13-40) Alanine Aminotransferase (ALT) 78 U/L (7-40) Alkaline Phosphatase 63 U/L (46-116) Total Protein 7.7 g/dL (5.7-8.2) Albumin 4.8 g/dL (3.2-4.8) Other Laboratory Tests 06/01/25 05:10 Brief Hx & Hospital Course: 79-year-old male without any pertinent medical history presents with complaints of ongoing dizziness over the previous week. States he feels like the room is spinning around him. Also feels nauseous. Endorses worsens when he tries to walk. States he is unable to walk with steady gait. At this time denies fevers, chills, shortness of breath, chest pain, palpitations, abdominal pain, dysuria, leg swelling. He is admitted and underwent further evaluation including head CT and MRI of the brain were unremarkable. Given the unremarkable MRI brain and being ruled out for acute stroke/TIA, Based on his symptoms it is felt the patient has been on patient's vertigo. Patient received meclizine and his symptoms resolved. He is feeling better back to baseline normal status. Therefore he has been discharged home in stable condition. I have talked with the patient regarding his hospital diagnosis, imaging results, discharge medications and discharge instructions. Patient verbalized understanding of these and agree with the care plan as outlined. Consults/Reason for consult EXAM: Two-dimensional and M-mode echocardiogram with Doppler and color Doppler. Blood Pressure: 152/67 mmHg INDICATION Dizziness and Vertigo RISK FACTORS Height: 70, Weight: 269 DIMENSIONS LVDd 5.5 (3.8-5.7cm) LA (2D) (1.9-4.0cm) Aortic Root 4.2 (2.0- 3.7cm) LVDs 4.1 (2.5-4.0cm) LA (MM) (1.9-4.0cm) Aortic Cusp Exc 2.4 (1.5- 2.0cm) EF (%) 50.0 (55-70%) Rt. Atrium (1.9-4.0cm) Asc. Aorta cm Mitral Valve Mitral Mitral Stenosis E wave 0.60m/s MV Mean GR. mmHg A wave 1.04m/s MV Peak GR. mmHg E/A ratio 0.6 2D MVA cm2 DECEL Time 235ms PRESS 1/2 Time ms Aortic Valve Aortic Valve Aortic Stenosis V1 1.04m/s AO Mean GR. 4mmHg V2 1.45m/s AO Peak GR. 8mmHg LVOT Diameter 2.2 (1.8-2.4cm) Doppler CAROLYN 2.73cm2 AI P 1/2 Time 692.42ms Pulmonic Valve V2 1.01m/s Tricuspid Valve TR Velocity 2.58m/s RVSP 27mmHg Conclusion MILD LVH AND MILD LV DIASTOLIC DYSFUNCTION LV EF IS 70% AORTIC SCLEROSIS MODERATE DEGREE AORTIC REGURGITATION NORMAL VALVES NO EFFUSION SIGNED BY: MELISSA WADDELL MD SIGNED DATE/TIME: 05/30/25 1708 Operations or Procedures PROCEDURE: MRI BRAIN HEAD WO CONTRAST Indication: dizziness COMPARISON: 05/29/2025 TECHNIQUE: Multiplanar multisequence images of the brain are obtained. FINDINGS: There is no abnormal diffusion restriction. There is no intracranial hemorrhage. No mass effect or midline shift. Left frontotemporal arachnoid cyst. Moderate periventricular and subcortical white matter T2 and FLAIR hyperintense changes.. The ventricles are midline and normal in size. The cisterns are patent. Normal intracranial flow voids are preserved. No abnormal susceptibility signal. Mastoids are well pneumatized. Mucosal thickening of the ethmoids. The visualized orbits are unremarkable. IMPRESSION: No acute cerebrovascular ischemia. Moderate chronic microvascular ischemic changes. Condition at Discharge: Stable Final Diagnosis/Problems List Benign Postional Vertigo Discharge Disposition: Home Discharge Instruct/Medications Diet: Consistent carbohydrate, Cardiac 2g Na,low cholest Activity: No Restrictions, As Tolerated Follow Up/Referral: PCP next week and referral to neurologist dr.sonia blair after 2 weeks for dizziness Medications: as prescribed and home medications Scheduled PRN Meclizine Hcl (Meclizine Hcl), 1 TAB PO TID PRN Discharge Statement: "Patient was advised to return to the ER or call 911 if any headaches, dizziness, shortness of breath, chest pain, abdominal pain, bleeding, fevers, or worsening of medical condition. Patient was counseled about treatment plan, medications, possible side effects, patientverbalized understanding. All questions were answered to the best of my ability. This discharge took greater then 30 minutes in planning, reviewing documentation, counseling the patient, and discussing with other team members." ASSESSMENT ASSESSMENT Assessment Benign Postional Vertigo SOLEDAD NUR MD Jun 01, 2025 13:03
--- NOTE | 2025-06-01 23:41 | DVHPN2 ---
Progress Note - Dictate Date Seen: Jun 01, 2025 Medical Necessity Reason Pt with a Central, PICC or Fol: No Subjective Patient was seen and evaluated in follow up. Patient has no new complaints at this time. Patient denies any cardiac symptoms. Patient is cardiac stable for discharge. Telemetry reviewed. vital signs Vital Sign Date Time Temp Pulse Resp B/P (MAP) Pulse Ox O2 Delivery O2 Flow Rate FiO2 06/01/25 12:49 98.6 75 17 95 06/01/25 09:00 128/77 (94) 06/01/25 08:00 Room Air* 0 21 Total Intake and Output 05/31/25 05/31/25 06/01/25 15:00 23:00 07:00 Intake Total 450 ml 700 ml 750 ml Output Total 9000 ml 750 ml Balance 450 ml -8300 ml 0 ml medications Current Medications Medications Dose Ordered Sig/Rena Route Start Time Stop Time Status Last Admin Dose Admin Docusate Sodium 100 mg BIDPRN PRN PO 05/29/25 23:15 Acetaminophen 650 mg Q6HP PRN PO 05/29/25 23:15 Acetaminophen/ Hydrocodone Bitart 1 tab Q4HP PRN PO 05/29/25 23:15 Ondansetron HCl 4 mg Q4HP PRN IV 05/29/25 23:15 Enoxaparin Sodium 40 mg DAILY SC 05/30/25 10:00 05/31/25 10:20 40 MG Nitroglycerin 0.4 mg Q5MINP PRN SL 05/29/25 23:15 Morphine Sulfate 2 mg Q30M PRN IV 05/29/25 23:15 Meclizine HCl 25 mg Q8HR PO 05/30/25 06:00 06/01/25 22:01 06/01/25 05:17 25 MG Hydralazine HCl 10 mg Q6HP PRN IV 05/30/25 05:45 05/30/25 06:15 10 MG Lisinopril 5 mg QPM PO 05/31/25 20:00 05/31/25 22:29 5 MG objective GENERAL: Alert and oriented x 3. No acute distress. Obese. EYES: PERRL, EOMI. Anicteric. HENT: Moist mucous membranes. LUNGS: Clear to auscultation bilaterally. CARDIOVASCULAR: Regular rate and rhythm. ABDOMEN: Soft, non-tender and non-distended. EXTREMITIES: No edema. NEUROLOGIC: No focal neurological deficits. SKIN: Warm, dry. laboratory and microbiology Laboratory Tests 06/01/25 05:10 Test 06/01/25 05:10 Range/Units Serum Glucose 114 H 74-106 mg/dL Problem List Dizziness. Nausea vomiting and diarrhea. Obesity. Assessment/Plan Continued all current supportive medical care. Nitro SL. Morphine and [place] for pain management. Additional plan as per the hospital course. Plan discussed with: Patient MELISSA WADDELL MD Jun 01, 2025 13:24
== END 2025-06-01 13:25 | disposition home health service (06) | DRG 149 ==
LOC: ER 17:53 → OVERFLOW 23:14 → TELE-WESTW 05-30 11:18
PROVIDERS: ADMIT Nurse Practitioner Family; ATTEND Nurse Practitioner Family
DX: H81.11 Benign paroxysmal vertigo, right ear (principal); E66.01 Morbid (severe) obesity due to excess calories; I10 Essential (primary) hypertension; Z80.0 Family history of malignant neoplasm of digestive organs; Z82.3 Family history of stroke; Z79.899 Other long term (current) drug therapy; Z68.38 Body mass index [BMI] 38.0-38.9, adult
CPT/HCPCS: 36415; 70450; 70551; 71046; 80048; 80053; 83735; 84484; 85025; 93005; 93306; 97110; 97116; 97163; 97530; 99291; G0378